=== PATIENT | female | born 1945 | race Caucasian/White ===

== ENCOUNTER 2017-03-13 16:10 | Observation (INO) | payer MEDICARE, BC ==
[~2017-03-13] VITALS: Ht 154.9 cm; Wt 67.3 kg
[2017-03-13] MEDS ORDERED: SODIUM CHLORIDE FLUSH 10 ML SYR INJ PRN (17:15)
[2017-03-13 17:35] LABS: BASOPHILS # (AUTO) 0.1 (0.0-0.1); BASOPHILS % 1.4 % (0.0-1.0); EOSINOPHILS # (AUTO) 0.6 (0.0-0.4); EOSINOPHILS % 5.5 % (0.0-6.0); HEMATOCRIT 41.1 % (34.2-44.1); HEMOGLOBIN 13.6 g/dL (12.0-16.0); LYMPHOCYTES # (AUTO) 4.5 (1.0-3.2); LYMPHOCYTES % 43.8 % (18.0-39.1); MEAN CORPUSCULAR HEMOGLOBIN 29.1 pg (28-32); MEAN CORPUSCULAR HGB CONC 33.1 g/dL (31-35); MONOCYTES # (AUTO) 0.6 (0.2-0.8); MONOCYTES % 5.5 % (4.4-11.3); NEUTROPHILS # (AUTO) 4.5 (2.1-6.9); NEUTROPHILS % 43.6 % (38.7-80.0); PLATELET COUNT 332 x10e3/uL (140-360); RED BLOOD COUNT 4.67 x10e6/uL (3.6-5.1); RED CELL DISTRIBUTION WIDTH 13.5 % (11.7-14.4)
[2017-03-13 17:38] LABS: BILIRUBIN,URINE NEGATIVE (NEGATIVE); KETONES,URINE NEGATIVE (NEGATIVE); LEUKOCYTE ESTERASE ,URINE 1+ (NEGATIVE); NITRITE,URINE NEGATIVE (NEGATIVE); PROTEIN,URINE DIPSTICK NEGATIVE (NEGATIVE); URINE UROBILINOGEN 0.2 mg/dL (0.2 - 1)
[2017-03-13 17:42] LABS: CLARITY,URINE SL CLOUDY (CLEAR); COLOR,URINE YELLOW (YELLOW)
[2017-03-13 17:43] LABS: INR 0.92; PROTHROMBIN TIME 12.8 seconds (11.9-14.5)
[2017-03-13 17:44] LABS: PARTIAL THROMBOPLASTIN TIME 35.7 seconds (23.8-35.5)
[2017-03-13 17:50] LABS: ALBUMIN/GLOBULIN RATIO 1.2 (0.8-2.0); ANION GAP 17.6 mmol/L (8-16); CREATININE, SERUM 1.01 mg/dL (0.57-1.11); POTASSIUM 3.6 mmol/L (3.5-5.1)
[2017-03-13 17:58] LABS: EPITHELIAL CELLS,URINE FEW /LPF; RBC,URINE 0-5 /HPF (0-5)
[2017-03-13 17:59] LABS: TRANSITIONAL EPI CELLS,URINE RARE; TROPONIN I 0.003 ng/mL (0-0.300)
--- NOTE | 2017-03-13 18:08 | Diagnostic Imaging Report ---
EXAMINATION: Head CT HISTORY: Blurry vision in the left eye for the last 4 days, double vision, vertigo COMPARISON: None. TECHNIQUE: Multidetector axial images were obtained without contrast from the foramen magnum to the vertex . The images were reconstructed using brain and bone algorithms. Thin section brain images were reformatted into coronal and sagittal planes. Intravenous contrast: None. Motion/streaking artifact limits the evaluation of the skull base and posterior cranial fossa. FINDINGS: Parenchyma: 1. Small hypodensities in the head of the caudate nuclei consistent with small chronic lacunar infarcts. 2. No mass or hemorrhage. No CT evidence of acute territorial vascular insult. Extra-axial spaces:No abnormal density. No extra-axial fluid collections Brain volume: Normal for age. Ventricles: No hydrocephalus or displacement. Arteries: No density suggestive of thrombus. Dural sinuses: No abnormal density. Extra-axial spaces: No abnormal density. Foramen magnum: No mass, Chiari malformation, or basilar invagination. Sella: No obvious mass. Paranasal/mastoid sinuses: Imaged portions unremarkable. Skull/Scalp: No lytic or blastic lesions. No fractures. IMPRESSION: 1. No acute intracranial hemorrhage or cortical infarcts. 2. Small chronic lacunar infarcts in the basal ganglia. Signed by: Dr. Jordana Deng M.D. on 03/13/2017 6:04 PM
[2017-03-13] MEDS ORDERED: ASPIRIN 81 MG CHEW TAB PO STA (23:40)
[2017-03-13] MEDS ORDERED: ONDANSETRON HCL INJ 2 MG/ML VIAL IV PRN (23:45)
[2017-03-14] VITALS (7 sets, daily range): BP systolic 120–165; BP diastolic 66–80
[2017-03-14] MEDS ORDERED: DEXTROSE 50% SYRINGE 50 ML IV PRN
[2017-03-14] MEDS: SODIUM CHLORIDE 0.9% 1000ML 1,000 ML IV SCH ×2 (00:26→17:30)
[2017-03-14] MEDS: INSULIN REGULAR, HUMAN 100 UNIT/1 ML 3ML VIAL SQ SCH ×4 (07:30→21:00)
[2017-03-14] MEDS: ASPIRIN 81 MG ENTERIC COATED PO SCH (09:12)
[2017-03-14 09:17] LABS: BASOPHILS # (AUTO) 0.1 (0.0-0.1); BASOPHILS % 1.2 % (0.0-1.0); EOSINOPHILS # (AUTO) 0.6 (0.0-0.4); EOSINOPHILS % 6.1 % (0.0-6.0); HEMATOCRIT 37.6 % (34.2-44.1); HEMOGLOBIN 12.5 g/dL (12.0-16.0); LYMPHOCYTES # (AUTO) 4.4 (1.0-3.2); LYMPHOCYTES % 47.8 % (18.0-39.1); MEAN CORPUSCULAR HEMOGLOBIN 29.3 pg (28-32); MEAN CORPUSCULAR HGB CONC 33.2 g/dL (31-35); MEAN CORPUSCULAR VOLUME 88.1 fL (81-99); MONOCYTES # (AUTO) 0.5 (0.2-0.8); MONOCYTES % 5.7 % (4.4-11.3); NEUTROPHILS # (AUTO) 3.6 (2.1-6.9); PLATELET COUNT 288 x10e3/uL (140-360); RED BLOOD COUNT 4.27 x10e6/uL (3.6-5.1); RED CELL DISTRIBUTION WIDTH 13.5 % (11.7-14.4)
[2017-03-14 09:31] LABS: ALANINE AMINOTRANSFERASE 18 IU/L (0-55); ALBUMIN 3.4 g/dL (3.5-5.0); ALBUMIN/GLOBULIN RATIO 1.3 (0.8-2.0); ALKALINE PHOSPHATASE 70 IU/L (40-150); ANION GAP 12.3 mmol/L (8-16); BLOOD UREA NITROGEN 7 mg/dL (7-26); BUN/CREATININE RATIO 8 (6-25); CALCIUM 9.3 mg/dL (8.4-10.2); CARBON DIOXIDE 24 mmol/L (22-29); CHLORIDE 108 mmol/L (98-107); CREATININE, SERUM 0.88 mg/dL (0.57-1.11); EST GLOMERULAR FILTRATION RATE > 60 ML/MIN (60-); GLUCOSE 130 mg/dL (74-118); POTASSIUM 3.3 mmol/L (3.5-5.1); SODIUM 141 mmol/L (136-145)
[2017-03-14 09:52] LABS: CREATINE KINASE MB 1.2 ng/mL (0.00-5.00); TROPONIN I 0.013 ng/mL (0-0.300)
[2017-03-14 14:18] LABS: CHOL/HDL RATIO 4.6 (3.0-3.6)
[2017-03-14] MEDS ORDERED: ACETAMIN/BUTALBITAL/CAFFEINE TAB PO PRN (15:30)
[2017-03-14 16:17] LABS: CREATINE KINASE MB 1.4 ng/mL (0.00-5.00); TROPONIN I 0.001 ng/mL (0-0.300)
--- NOTE | 2017-03-14 17:01 | Diagnostic Imaging Report ---
Examination: MRI BRAIN WITHOUT CONTRAST History: 72-year-old female with right side of head and face pain, diplopia, migraines and positional vertigo. Comparison studies: Head CT performed March 13, 2017. Technique: Sagittal T2; axial DWI, FLAIR, GRE or SWI, T1, Coronal FLAIR. Intravenous contrast: None Findings: Scalp: No abnormal signal. No masses. Bone marrow: Normal in signal intensity. Brain volume: Adequate for age. No volume loss. Ventricles: Normal in size and configuration. No hydrocephalus. Extra-axial spaces: No abnormalities. Parenchyma: There are confluent areas of T2/FLAIR hyperintensity in the periventricular white matter, nonspecific. Chronic infarcts in the bilateral caudate heads. No masses, hemorrhage, or acute vascular insults. Suprasellar and sellar region: No abnormalities. Craniocervical junction: No abnormalities. The foramen magnum is patent. No Chiari malformations. Vessels: Normal flow-voids in the arteries and sinuses. Additional findings:None. IMPRESSION: 1. No acute abnormalities. 2. Mild chronic microvascular ischemic change. 3. Chronic lacunar infarcts in the bilateral caudate heads. Signed by: Dr. Karlie Jiménez M.D. on 03/14/2017 4:57 PM
[2017-03-14] MEDS: METFORMIN HCL 500 MG TAB PO SCH (17:41)
[2017-03-14] MEDS ORDERED: ATORVASTATIN 20 MG TAB PO SCH (21:00)
[2017-03-15] VITALS: BP 134/63
--- NOTE | 2017-03-15 02:19 | Consultation ---
DATE OF CONSULTATION: March 14, 2017 NEUROLOGICAL CONSULTATION Patient of Dr. Reji Mixon. TIME: 6 p.m. REASON FOR CONSULTATION: Diplopia. HISTORY: This is a 72-year-old female who last Monday while driving she was not feeling well and suddenly started seeing double left and the imaging [id number]. They brought her to the emergency room and was admitted for further evaluation and management. The patient in the last several weeks has been having like 2 or 3 weeks constant what she called migraine headaches. She never had a history of migraine headaches headaches, she went to the emergency room, they did CAT scan, they never found anything, everything happened since she has the flu shot. Last Monday, the headache has subsided and she was doing better and then developed the diplopia. She never had any problem like this in the past. PAST HISTORY: Hypertension, diabetes mellitus, hypothyroidism, hyperlipidemia. MEDICATIONS: She has been taking bisoprolol, atorvastatin, bupropion, metformin, loratadine, glipizide, and Naprosyn. The patient at the present time has no headache, but she feels something funny with the left eye she had to keep the left eye closed, now she has an eye patch. She denies any nausea, vomiting. She denies any speech or swallowing difficulties. There is no focal paresthesia or focal weakness. There is no loss of balance. SOCIAL HISTORY: No smoking. No alcohol. No use of drug. FAMILY HISTORY: Negative. REVIEW OF SYSTEMS: All 12 steps negative except what is described above. GENERAL PHYSICAL EXAMINATION: GENERAL: Well-developed woman, seems to be in no acute distress. VITAL SIGNS: Blood pressure 150/90, pulse 72 and regular, afebrile. LUNGS: Clear to auscultation. HEART: Regular sinus rhythm, no murmur. ABDOMEN: Soft. No tenderness. No organomegaly. MUSCULOSKELETAL: Lower extremities, no edema, no cyanosis, no clubbing. No back or neck pain. NEUROLOGICAL EXAMINATION: MENTAL STATUS: She is alert and oriented x3. Speech clear. No dysarthria or dysphagia. CRANIAL NERVES: Pupils are both equal and reactive. External ocular movements were, right eye completely normal range of motion. Left eye, there is paralysis of the gaze to the left side in the left eye (sixth nerve). Seeing double imaging [id number]. Visual dillon normal. No facial weakness. Facial sensation normal. Tongue protrudes in the midline. MOTOR POWER: There is no evidence of weakness in either both upper and lower extremities including proximal and distal muscles. Plantar stimulation is down bilaterally. Deep tendon reflexes of triceps, biceps, and radial 1+; knee jerk 1+, ankle jerk absent bilaterally. HEAD: Normocephalic. NECK: Supple. Carotid pulsations were present bilaterally. There were no bruits. LABORATORY WORKUP: CBC showed white count of 9100 with hemoglobin 12.5, hematocrit 37.6, platelets 288,000. Chemistry: Sodium, potassium, and chloride were all normal. BUN 7, creatinine is 1.1, estimated GFR 54. Glucose 130. Liver enzymes are all normal. Urinalysis negative. IMAGING: CT scan of the brain showed no acute pathology. MRI of the brain showed no acute pathology. There are mild chronic microvascular ischemic changes seen bilaterally. IMPRESSION: 1. Left sixth nerve paralysis. Unspecified. 2. Diabetes mellitus type 2. 3. Hypertension. 4. Diplopia. Patient is using the eye patch, to continue with that. Definitely being the MRI normal, there is nothing serious. The etiology is undetermined at the present time, but we see these in patients with viral syndrome and patients with diabetes, usually gets better by itself. It will take several weeks at least. The patient has an appointment with neurologist next Monday. I told her to go and see him and if he agrees with this finding, nothing else to be done. Patient and the family asked questions, questions have been answered. Thank you. Job#: [id number]
[2017-03-15 05:00] VITALS: BP 135/63
[2017-03-15] MEDS ORDERED: LEVOTHYROXINE SODIUM 75 MCG TAB PO SCH (06:00)
[2017-03-15 07:09] LABS: ANION GAP 12.1 mmol/L (8-16); BLOOD UREA NITROGEN 5 mg/dL (7-26); BUN/CREATININE RATIO 6 (6-25); CALCIUM 9.2 mg/dL (8.4-10.2); CARBON DIOXIDE 23 mmol/L (22-29); CHLORIDE 112 mmol/L (98-107); CREATININE, SERUM 0.85 mg/dL (0.57-1.11); EST GLOMERULAR FILTRATION RATE > 60 ML/MIN (60-); GLUCOSE 121 mg/dL (74-118); POTASSIUM 4.1 mmol/L (3.5-5.1); SODIUM 143 mmol/L (136-145)
[2017-03-15] MEDS: INSULIN REGULAR, HUMAN 100 UNIT/1 ML 3ML VIAL SQ SCH ×2 (07:30→11:30)
[2017-03-15 07:46] VITALS: BP 160/78
[2017-03-15] MEDS ORDERED: GLIPIZIDE 5 MG TAB ER PO SCH (08:00)
[2017-03-15] MEDS ORDERED: BUPROPION HCL 150 MG TABCR PO SCH (09:00)
[2017-03-15] MEDS ORDERED: BISOPROLOL FUMARATE 10 MG TAB PO SCH (09:00)
[2017-03-15] MEDS ORDERED: POTASSIUM CHLORIDE 20 MEQ TAB CR PO SCH (09:00)
[2017-03-15] MEDS ORDERED: HYDROCHLOROTHIAZIDE 25 MG TAB PO SCH (09:00)
[2017-03-15] MEDS: ASPIRIN 81 MG ENTERIC COATED PO SCH (09:07)
[2017-03-15] MEDS: METFORMIN HCL 500 MG TAB PO SCH (09:07)
[2017-03-15] MEDS: SODIUM CHLORIDE 0.9% 1000ML 1,000 ML IV SCH (10:52)
[2017-03-15 11:29] VITALS: BP 161/74
[2017-03-15] MEDS ORDERED: GLUCOTROL10 MG PO (16:04)
[2017-03-15] MEDS ORDERED: WELLBUTRIN SR150 MG PO (16:04)
[2017-03-15] MEDS ORDERED: ZEBETA10 MG PO (16:05)
[2017-03-15] MEDS ORDERED: SYNTHROID75 MCG PO (16:05)
[2017-03-15] MEDS ORDERED: LIPITOR20 MG PO (16:05)
[2017-03-15] MEDS ORDERED: GLUCOPHAGE850 MG PO (16:06)
== END 2017-03-15 16:18 | disposition home or self-care (01) ==
LOC: ER 16:10 → ERHOLD 23:57 → UNDOADMOB 23:59 → ERHOLD 03-14 00:09 → IMCU 03-14 00:09
PROVIDERS: ADMIT Internal Medicine; ATTEND Internal Medicine
DX: H49.22 Sixth [abducent] nerve palsy, left eye (principal); I10 Essential (primary) hypertension; E11.9 Type 2 diabetes mellitus without complications; Z88.2 Allergy status to sulfonamides; Z88.8 Allergy status to other drugs, medicaments and biological substances; Z79.84 Long term (current) use of oral hypoglycemic drugs; E78.00 Pure hypercholesterolemia, unspecified; R82.99 Other abnormal findings in urine
CPT/HCPCS: 36415 ×3; 70450; 70551; 80048; 80053 ×2; 80061; 81001; 82550 ×2; 82553 ×2; 82948 ×2; 83036; 84484 ×2; 85025 ×2; 85610; 85730; 87086; 93005; 99284; G0378 ×3; J7030

== ENCOUNTER → 2017-08-07 | Outpatient (RCR) | payer MEDICARE, BC ==
[~2017-08-07] MED LIST: GLUCOPHAGE850 MG PO; GLUCOTROL10 MG PO; LIPITOR20 MG PO; SYNTHROID75 MCG PO; WELLBUTRIN SR150 MG PO; ZEBETA10 MG PO
== END ==
LOC: PT 07-26 09:06
PROVIDERS: ATTEND Specialist
DX: M75.42 Impingement syndrome of left shoulder (principal); M25.512 Pain in left shoulder; M25.612 Stiffness of left shoulder, not elsewhere classified; M62.81 Muscle weakness (generalized)
CPT/HCPCS: 97010 ×3; 97110 ×6; 97162; G8984; G8985

== ENCOUNTER 2017-09-06 13:00 | Outpatient (RCR) | payer MEDICARE, BC | END 2017-09-07 | LOC: PT 13:00 | PROVIDERS: ATTEND Specialist | DX: M75.42 Impingement syndrome of left shoulder (principal); M25.512 Pain in left shoulder; M25.612 Stiffness of left shoulder, not elsewhere classified; M62.81 Muscle weakness (generalized) | CPT/HCPCS: 97010 ×3; 97110 ×13; 97140; G8984 ×2; G8985 ×2 ==

== ENCOUNTER 2017-10-06 14:00 | Outpatient (RCR) | payer MEDICARE, BC | END 2017-10-07 | LOC: PT 14:00 | PROVIDERS: ATTEND Specialist | DX: M75.42 Impingement syndrome of left shoulder (principal); M25.512 Pain in left shoulder; M25.612 Stiffness of left shoulder, not elsewhere classified; M62.81 Muscle weakness (generalized) | CPT/HCPCS: 97010 ×2; 97110 ×7; 97140 ×3; G8984; G8985 ==

== ENCOUNTER → 2017-10-24 | Day surgery (SDC) | payer MEDICARE, BC ==
[2017-10-23 12:59] LABS: BASOPHILS # (AUTO) 0.1 (0.0-0.1); BASOPHILS % 0.9 % (0.0-1.0); EOSINOPHILS # (AUTO) 0.5 (0.0-0.4); EOSINOPHILS % 4.6 % (0.0-6.0); HEMATOCRIT 38.6 % (34.2-44.1); HEMOGLOBIN 12.7 g/dL (12.0-16.0); LYMPHOCYTES # (AUTO) 4.8 (1.0-3.2); LYMPHOCYTES % 42.8 % (18.0-39.1); MEAN CORPUSCULAR HEMOGLOBIN 29.7 pg (28-32); MEAN CORPUSCULAR HGB CONC 32.9 g/dL (31-35); MEAN CORPUSCULAR VOLUME 90.2 fL (81-99); MONOCYTES # (AUTO) 0.7 (0.2-0.8); MONOCYTES % 6.5 % (4.4-11.3); NEUTROPHILS # (AUTO) 5.1 (2.1-6.9); NEUTROPHILS % 44.8 % (38.7-80.0); PLATELET COUNT 346 x10e3/uL (140-360); RED BLOOD COUNT 4.28 x10e6/uL (3.6-5.1); RED CELL DISTRIBUTION WIDTH 13.2 % (11.7-14.4)
[2017-10-23 13:16] LABS: ANION GAP 13.2 mmol/L (8-16); CALCIUM 10.9 mg/dL (8.4-10.2); CREATININE, SERUM 0.92 mg/dL (0.57-1.11); POTASSIUM 4.2 mmol/L (3.5-5.1)
--- NOTE | 2017-10-23 13:29 | Diagnostic Imaging Report ---
PROCEDURE: Frontal and lateral views of the chest. COMPARISON: 09/20/10 INDICATIONS: PRE-OPERATIVE CHEST X-RAY FOR LEFT SHOULDER SURGERY FINDINGS: Lines/tubes: None. Lungs: The lungs are well inflated. There is no evidence of pneumonia or pulmonary edema. Unchanged mild left midlung linear atelectasis/scarring. Pleura: There is no pleural effusion or pneumothorax. Heart and mediastinum: The heart and the mediastinum are normal. Bones: No acute bony abnormality. Degenerative changes of thoracic spine. IMPRESSION: 1. No acute cardiopulmonary disease. Dictated by: Juan Rios M.D. on 10/23/2017 at 13:33 Electronically approved by: Juan Rios M.D. on 10/23/2017 at 13:33
[~2017-10-24] MED LIST changes: +ACIDOPHILUS1 EAC1; +ALENDRONATE SOD70 MG; +ALEVE220 MG; +CENTRUM SILVER1 EAC4; +DIOVAN HCT 1601 EACH; +FENTANYL CITRATE/PF 100MCG/2 ML INJ ONE; +FIBER; +GLUCOSAMINE CH1 EAC2; +LIDOCAINE 2%/ EPINEPHRINE 20ML MDV ONE; +LIDOCAINE HCL 2% LOCAL INJ 5 ML SDV VIAL INJ ONE; +LORATADINE10 MG PO; +MIDAZOLAM HCL 2 MG/2 ML VIAL ONE; +NAPROXEN250 MG PO; +PROPOFOL IV EMULSION 10 MG/ML 20 ML VIAL ONE; +ROPIVACAINE 0.5% 5 MG/ML 30 ML SDV ONE; +[UNRECOGNIZED DRUG - OTHER]
--- NOTE | 2017-10-24 08:32 | Operative Report ---
DATE OF PROCEDURE: October 24, 2017 AS400 CONSULTANT: Sravan Escobedo PA-C The patient was brought to the operating room for induction of anesthesia. Throughout this case, my PA's assistance was necessary for retraction of soft tissue and positioning of the extremity. This allows for efficient and technically successful execution of the operation and is considered medically necessary. PREOPERATIVE DIAGNOSIS: Adhesive capsulitis, left shoulder. POSTOPERATIVE DIAGNOSIS: Adhesive capsulitis, left shoulder. PROCEDURE: Manipulation under anesthesia, left shoulder. INDICATIONS: The patient is a 72-year-old lady who has a painful stiff shoulder. She has failed approximately 3 months of conservative management with aggressive physical therapy. She has not progressed. MRI does not show any intra-articular pathology other than thickening of the capsule consistent with adhesive capsulitis. The options have been discussed. We have elected to proceed with a manipulation under anesthesia. The risks and benefits were explained. She stated she understood and wished to proceed. DESCRIPTION OF PROCEDURE: The patient was brought to the operating room. She was given a general anesthetic. She received a regional block in the holding area. A preoperative time out was performed. The left shoulder was then manipulated through an arc of motion. There was a palpable and audible release of the inferior capsule. The arm was put through a near full arc of motion after the manipulation. She was extubated and transported to the recovery room in stable condition. There was no blood loss. All needle and sponge counts were correct. Job#: [id number] DAVID
== END | disposition home or self-care (01) ==
LOC: OR 05:59
PROVIDERS: ATTEND Specialist
DX: M75.02 Adhesive capsulitis of left shoulder (principal); E11.9 Type 2 diabetes mellitus without complications; I10 Essential (primary) hypertension; E03.9 Hypothyroidism, unspecified; Z88.8 Allergy status to other drugs, medicaments and biological substances; Z01.810 Encounter for preprocedural cardiovascular examination; Z01.812 Encounter for preprocedural laboratory examination; Z01.818 Encounter for other preprocedural examination; Z79.84 Long term (current) use of oral hypoglycemic drugs
CPT/HCPCS: 23700; 36415 ×2; 71046; 80048; 82948; 85025; 93005; J2001 ×2; J2250; J2795

== ENCOUNTER 2017-11-06 13:00 | Outpatient (RCR) | payer MEDICARE, BC ==
[~2017-11-06 13:00] MED LIST changes: -FENTANYL CITRATE/PF 100MCG/2 ML INJ ONE; -LIDOCAINE 2%/ EPINEPHRINE 20ML MDV ONE; -LIDOCAINE HCL 2% LOCAL INJ 5 ML SDV VIAL INJ ONE; -MIDAZOLAM HCL 2 MG/2 ML VIAL ONE; -PROPOFOL IV EMULSION 10 MG/ML 20 ML VIAL ONE; -ROPIVACAINE 0.5% 5 MG/ML 30 ML SDV ONE
== END 2017-11-07 ==
LOC: PT 13:00
PROVIDERS: ATTEND Specialist
DX: M75.02 Adhesive capsulitis of left shoulder (principal); M75.42 Impingement syndrome of left shoulder; M25.512 Pain in left shoulder; M25.612 Stiffness of left shoulder, not elsewhere classified; M62.81 Muscle weakness (generalized)

== ENCOUNTER 2017-11-17 14:00 | Outpatient (RCR) | payer MEDICARE, BC | END 2017-12-08 | LOC: PT 14:00 | PROVIDERS: ATTEND Specialist | DX: M75.02 Adhesive capsulitis of left shoulder (principal); M75.42 Impingement syndrome of left shoulder; M25.512 Pain in left shoulder; M25.612 Stiffness of left shoulder, not elsewhere classified; M62.81 Muscle weakness (generalized) ==

== ENCOUNTER 2020-12-07 11:00 | Outpatient (RCR) | payer MEDICARE, BC | END 2020-12-08 | LOC: PT 11:00 | PROVIDERS: ATTEND Specialist | DX: S30.0XXA Contusion of lower back and pelvis, initial encounter (principal); S46.911A Strain of unspecified muscle, fascia and tendon at shoulder and upper arm level, right arm, initial encounter ==

== ENCOUNTER 2020-12-16 10:59 | Outpatient (RCR) | payer MEDICARE, BC | END 2021-01-07 | LOC: PT 10:59 | PROVIDERS: ATTEND Specialist | DX: S30.0XXA Contusion of lower back and pelvis, initial encounter (principal); S46.911A Strain of unspecified muscle, fascia and tendon at shoulder and upper arm level, right arm, initial encounter | CPT/HCPCS: 97139 ==